=== PATIENT | female | born 1960 | race Caucasian/White ===

== ENCOUNTER 2018-05-17 07:31 | Day surgery (SDC) | payer OTHER ==
[~2018-05-17] VITALS: Ht 162.6 cm; Wt 127.0 kg
[~2018-05-17 07:31] MED LIST: ALER-CAP25 M1 PO; ASPIR-TRIN325 M1 PO; BUSPAR7.5 MG PO; CALCIUM CARBON600 M1 PO; CATAPRES0.2 MG PO; CELEBREX200 MG PO; CINNAMON500 MG PO; CYMBALTA60 MG PO; Detrol LA PO; FISH OIL 1,0001 EAC7 PO; FLONASE ALLERG9.9 ML BOTH NARES; FOLVITE1 MG PO; ONE DAILY COMP1 EAC1 PO; Omega III EPA + DHA PO; PLAQUENIL200 MG PO; PRILOSEC20 MG PO; PRISTIQ100 MG PO; SENOKOT S,PE1 TABLET PO; THERAGRAN1 TABLET PO; TOPROL XL25 MG PO; Toprol XL PO; Vicodin,Lortab 5/500 PO; ZYBAN 150 MG T150 MG PO
[2018-05-17 08:30] VITALS: BP 141/77
[2018-05-17 13:54] VITALS: BP 131/71
[2018-05-17 14:50] VITALS: BP 131/75
== END 2018-05-17 15:20 | disposition home or self-care (01) ==
LOC: SDC 07:31
DX: M25.374 Other instability, right foot (principal); S93.691A Other sprain of right foot, initial encounter; M24.477 Recurrent dislocation, right toe(s); M77.41 Metatarsalgia, right foot; R26.2 Difficulty in walking, not elsewhere classified; I10 Essential (primary) hypertension; I49.9 Cardiac arrhythmia, unspecified; K21.9 Gastro-esophageal reflux disease without esophagitis; F41.9 Anxiety disorder, unspecified; G47.33 Obstructive sleep apnea (adult) (pediatric); Z88.0 Allergy status to penicillin
CPT/HCPCS: 73630; 76000; C1713; J0131; J1100; J2250; J3010; S0020